=== PATIENT | male | born 1970 | race Two or more races ===

== ENCOUNTER 2021-02-20 15:39 | Outpatient (CLI) | payer OTHER ==
[~2021-02-20 15:39] MED LIST: VERAPAMIL HCL240 MG
== END 2021-02-20 16:17 | disposition home or self-care (01) ==
LOC: OFIC 805 15:39
PROVIDERS: ATTEND Otolaryngology Otology & Neurotology
DX: H93.13 Tinnitus, bilateral (principal); H83.3X3 Noise effects on inner ear, bilateral